=== PATIENT | male | born 1990 | race Caucasian/White ===

== ENCOUNTER 2022-03-13 10:04 | Outpatient (REF) | payer BC, SELFPAY ==
[2022-03-13 13:31] LABS: MANUAL DIFF FLAG NO
[2022-03-13 13:45] LABS: Basophils Absolute Auto 0.1 X10*3/uL (0.0-0.2); Basophils Percent Auto 0.7 % (0-2); Eosinophils Absolute Auto 0.1 X10*3/uL (0.0-0.4); Eosinophils Percent Auto 1.3 % (0-4); Hematocrit 46.2 % (42.0-52.0); Hemoglobin 16.5 g/dl (14.0-18.0); Imm Gran Abs Auto 0.26 X10*3/uL (0.00-0.03); Imm Gran Pct Auto 2.9 % (0.0-0.4); Lymphocytes Absolute Auto 2.2 X10*3/uL (1.2-4.9); Lymphocytes Percent Auto 24.8 % (20-40); Mean Corpuscular HGB Conc 35.7 g/dl (31.0-36.0); Mean Corpuscular Hemoglobin 33.2 pg (27.0-33.0); Monocytes Percent Auto 10.5 % (2-11); Neutrophils Absolute Auto 5.4 x10*3/uL (2.0-8.3); Neutrophils Percent Auto 59.8 % (45-73); Platelet Count 305 X10*3/uL (160-400); Red Blood Count 4.97 X10*6/uL (4.60-5.80); Red Cell Distribution Width 13.5 % (11.0-16.0)
[2022-03-13 14:08] LABS: Alanine Aminotransferase 13 U/L (0-40); Albumin Level 4.3 g/dL (3.5-5.0); Alkaline Phosphatase 103 U/L (39-117); Anion Gap 13 (12-20); Aspartate Amino Transferase 25 U/L (5-37); Bilirubin Total 0.4 mg/dL (0.0-1.0); Blood Urea Nitrogen 13 mg/dL (9-16); C Reactive Protein 0.83 mg/dL (< or = 0.50); Calcium 9.7 mg/dL (8.4-10.2); Carbon Dioxide 26 mmol/L (22-29); Chloride 105 mmol/L (96-108); Estimated Glomerular Filt Rate > 60; Glucose Random 89 mg/dL (60-115); Potassium 3.8 mmol/L (3.3-5.1); Rheumatoid Factor < 15.0 IU/mL (<15.0); Sodium 140 mmol/L (135-145); Total Protein 7.7 g/dL (6.5-8.0)
[2022-03-13 14:31] LABS: Erythrocyte Sedimentation Rate 7 MM/HR (0-15); Syphilis Screen Nonreactive (Nonreactive)
[2022-03-13 15:44] LABS: CT PCR NOT DETECTED (Not Detect.); NG PCR NOT DETECTED (Not Detect.)
[2022-03-16 08:24] LABS: HBsAGNum1 0.17 S/CO (0.00-0.99); HIV AB/AG Nonreactive (Nonreactive); HIV Num 1 0.07 S/CO (0.00-0.99); Hepatitis B Surface Antigen Negative (Negative); ~HepC Num1 0.08 S/CO (0.00-0.79); ~Hepatitis C Antibody Nonreactive (Nonreactive)
[2022-03-16 13:26] LABS: Anti Nuclear Antibody Screen NEGATIVE (NEGATIVE)
[2022-03-16 18:02] LABS: Cyclic Citrullinated Peptide <16 UNITS
== END 2022-03-13 10:05 | disposition home or self-care (01) ==
LOC: HO.MANLDS 10:04
PROVIDERS: PCP Physician Assistant; Visit Provider Physician Assistant
DX: Z11.3 Encounter for screening for infections with a predominantly sexual mode of transmission (principal); Z11.4 Encounter for screening for human immunodeficiency virus [HIV]; M19.90 Unspecified osteoarthritis, unspecified site
CPT/HCPCS: 80053; 85025; 85652; 86038; 86039; 86140; 86200; 86431; 86780; 86803; 87340; 87389; 87491; 87591

== ENCOUNTER 2025-10-05 15:03 | Outpatient (REF) | payer OTHER, SELFPAY ==
[2025-10-05 15:45] LABS: MANUAL DIFF FLAG NO
[2025-10-05 18:38] LABS: Hematocrit 48.4 % (42.0-52.0); Hemoglobin 17.2 g/dl (14.0-18.0); Imm Gran Abs Auto 0.02 X10*3/uL (0.00-0.03); Imm Gran Pct Auto 0.2 % (0.0-0.4); Lymphocytes Absolute Auto 3.7 X10*3/uL (1.2-4.9); Mean Corpuscular HGB Conc 35.5 g/dl (31.0-36.0); Mean Corpuscular Hemoglobin 30.4 pg (27.0-33.0); Mean Corpuscular Volume 85.5 fL (80.0-98.0); NRBC Abs Auto 0.000 X10*3/uL (0.0-0.012); NRBC Pct Auto 0.0 /100WBC (0.0-0.2); Platelet Count 342 X10*3/uL (160-400); Red Blood Count 5.66 X10*6/uL (4.60-5.80); White Blood Count 10.5 X10*3/uL (4.8-10.8)
[2025-10-05 18:44] LABS: Appearance Urine Clear; Glucose Urine UA Negative (Negative); PH 6.0 (5.0-9.0); Specific Gravity - Urine 1.020 (1.005-1.025)
[2025-10-05 19:02] LABS: Alanine Aminotransferase 20 U/L (0-40); Albumin Level 5.1 g/dL (3.5-5.0); Alkaline Phosphatase 73 U/L (39-117); Anion Gap 11 (12-20); Aspartate Amino Transferase 33 U/L (5-37); Blood Urea Nitrogen 10 mg/dL (9-16); Calcium 9.4 mg/dL (8.4-10.2); Carbon Dioxide 28 mmol/L (22-29); Chloride 103 mmol/L (96-108); Cholesterol 158 mg/dL (<200); Estimated Glomerular Filt Rate > 60; HDL Cholesterol 38 mg/dL (>40); Magnesium 2.2 mg/dL (1.6-2.6); Potassium 3.6 mmol/L (3.3-5.1); Sodium 138 mmol/L (135-145); Total Protein 8.0 g/dL (6.5-8.0); Triglycerides 46 mg/dL (<150)
[2025-10-05 19:29] LABS: Folate 6.5 ng/mL (> or = 4.0); Vitamin B12 674 pg/mL (200-900)
[2025-10-06 08:21] LABS: HBsAGNum1 0.37 S/CO (0.00-0.99); HIV Num 1 0.05 S/CO (0.00-0.99); Hepatitis B Surface Antigen Negative (Negative); ~HepC Num1 0.08 S/CO (0.00-0.79); ~Hepatitis B Surface Antibody REACTIVE (Nonreactive); ~Hepatitis C Antibody Nonreactive (Nonreactive)
[2025-10-09 18:24] LABS: VITAMIN D (1,25 OH) D3 46 pg/mL; Vit D (1,25-Dihydroxy) Total 46 pg/mL (18-72); Vitamin D (1,25 OH) D2 <8 pg/mL
== END 2025-10-05 15:04 | disposition home or self-care (01) ==
LOC: HO.HKASLDS 15:03
PROVIDERS: PCP Student in an Organized Health Care Education/Training Program; Visit Provider Student in an Organized Health Care Education/Training Program
DX: I10 Essential (primary) hypertension (principal); A60.00 Herpesviral infection of urogenital system, unspecified; B00.9 Herpesviral infection, unspecified; F12.91 Cannabis use, unspecified, in remission; F10.11 Alcohol abuse, in remission; M19.90 Unspecified osteoarthritis, unspecified site; Z13.1 Encounter for screening for diabetes mellitus; Z87.891 Personal history of nicotine dependence
CPT/HCPCS: 36415; 80053; 80061; 81003; 82607; 82652; 82746; 83036; 83735; 84425; 84443; 85025; 86706; 86803; 87340; 87389; 96127

== ENCOUNTER 2025-10-05 15:03 | Outpatient (AMB) | payer OTHER, SELFPAY ==
--- NOTE | 2025-10-05 15:10 | MHC.PC.OV ---
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 - Med reviews Intake Note: med review [place] Inspector Required: No Allergies No Known Allergies Allergy (Verified 10/05/25 15:13) Medication List - Last Reconciled 10/05/25 by Zach Grande MD No Known Home Meds Tobacco use date assessed: 10/05/25 Dental Screening Dental Screen Date: 10/05/25 Did you have a dental visit in the last 12 months?: Yes Did you have a dental problem in the last 6 months where you did not have access to dental care?: No Was dental information given to patient?: Patient has dentist HPI HPI Comments History of Present Illness Details History of Present Illness The patient is a 35-year-old individual [facility] and for management of recurrent genital herpes outbreaks. Genital herpes simplex: The patient was diagnosed with genital herpes at age 18. Previously, the patient was on suppressive therapy with valacyclovir 1 gram daily, starting around age 19 or 20, which effectively controlled the outbreaks. Since stopping the daily medication, the patient reports that the breakouts have been horrible, with approximately four outbreaks in the last six months requiring visits to urgent care. The patient is currently recovering from an active outbreak and has medication from a recent urgent care visit. The patient notes that the outbreaks have remained severe over the years, contrary to the expectation that they might lessen with age, and questions if stress is a contributing factor. Arthritis: The patient has a history of arthritis, characterized by finger swelling, but has not experienced an episode in the last year. In the past, these episodes were treated with prednisone on two occasions, which was prescribed at an urgent care center. There is a family history of rheumatoid arthritis in the patient's grandmother and unspecified arthritis in the patient's mother's knees. Hypertension: The patient has a history of high blood pressure and was previously treated with clonidine. Substance Use History: The patient reports a history of alcoholism, characterized by years of daily drinking. For the past three years, the patient has been attempting to maintain sobriety with some relapses described as weekend binges. The patient has been sober for the last three months and expresses a desire to continue this. The patient also has a history of smoking cigarettes and marijuana since age 16, with a cigarette consumption of a pack per day, but quit both four days prior to the visit. Surgical History: - No surgical history reported. 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 - Tobacco Use: The patient reports a history of smoking approximately one pack of cigarettes per day since age 16. - The patient quit smoking four days ago and is not using any cessation aids. - Substance Use: The patient quit using marijuana four days ago. - The patient reports a history of alcoholism and has been sober for three months. Family History: - Grandmother: Has rheumatoid arthritis. - Mother: Has arthritis in the knees. Past Medical History - Genital herpes simplex since age 18. - Arthritis, unspecified, with episodes of finger swelling treated with prednisone. - Hypertension, previously treated with clonidine. - Alcohol use disorder, in early remission for 3 months. - Tobacco use disorder, quit 4 days prior to visit. - Marijuana use, quit 4 days prior to visit. Health Maintenance - The patient is establishing primary care after a period of approximately three years without a primary provider. - Comprehensive baseline laboratory screening was ordered, including a comprehensive metabolic panel, thyroid studies, B12, folate, vitamin D, hemoglobin A1c, lipid panel, CBC, HIV, and hepatitis panel. - Tobacco cessation: The patient quit smoking cigarettes (previously 1 pack/day) four days ago. - Substance use: The patient quit marijuana use four days ago and has been abstinent from alcohol for three months, with support services offered. [facility] Medical History (Updated 10/05/25 @ 15:35 by Zach Grande MD) History of hypertension Arthritis History of alcohol abuse History of marijuana use History of nicotine dependence Herpes simplex type 2 infection Family History (Updated 10/05/25 @ 15:16 by Carl Yu CMA) Maternal Uncle Substance abuse Paternal Uncle Substance abuse Father Substance abuse Mother Substance abuse Arthritis Maternal Grandmother Hypertension Social History (Updated 10/05/25 @ 15:16 by Carl Yu CMA) Housing: House Alcohol intake: former Patient Tobacco Use Status: Former Tobacco user e-Cigarette/Vaping Use: Never Used Substance Use Type: Marijuana service: No Current occupational status: employed 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 1. Little interest or pleasure in doing things: several days 2. Feeling down, depressed, or hopeless: not at all 3. Trouble falling or staying asleep, or sleeping too much: several days 4. Feeling tired or having little energy: several days 5. Poor appetite or overeating: nearly every day 6. Feeling bad about yourself - or that you are a failure or have let yourself or your family down: several days 7. Trouble concentrating on things, such as reading the newspaper or watching television: several days 8. Moving or speaking so slowly that other people could have noticed. Or the opposite - being so fidgety or restless that you have been moving around a lot more than usual: not at all 9. Thoughts that you would be better off or of hurting yourself in some way: not at all Total score: 8 Depression Screening Interpretation: Negative Depression Screening Done: Yes 43955 - PHQ-9 Billing: Yes Source: Developed by Drs. Steffen Felton, Lanette Longoria, Celestine Larkin and colleagues, with an educational boubacar from [employer]. Thrive Questionnaire Date Thrive assessed: 10/05/25 I am a: Patient What is your living situation today?: I have a steady place to live Within the past 12 months, did the food you bought not last and you didn't have the money to get more?: Never true Within the past 12 months, did you worry whether your food would run out before you got money to buy more?: Never true Do you have trouble paying for medicines?: No Do you have trouble getting transportation to medical appointments?: No Do you have trouble paying your heating and electricity bill?: No Do you have trouble taking care of your child, family member or friend?: No Do you have trouble with day-to-day activities such as bathing, preparing meals, shopping, managing finances, etc.?: No Are you currently unemployed and looking for a job?: No Are you interested in more education?: No Please select the resources that you would like help with: None Currently or been in a relationship where the following occur: No concerns reported THRIVE Score: 0 AUDIT C Alcohol Use Questionnaire (AUDIT-C) 1. How often do you have a drink containing alcohol?: Never 3. How often do you have six or more drinks on one occasion?: Never Total Score: 0 KELLY-7 AMB Questionnaire KELLY-7 Date KELLY - 7 assessed: 10/05/25 Feeling nervous, anxious, or on edge: 1 = Several days Not being able to stop or control worryin = Several days Worrying too much about different things: 1 = Several days Trouble relaxin = More than half the days Being so restless that it is hard to sit still: 2 = More than half the days Becoming easily annoyed or irritable: 1 = Several days Feeling afraid as if something awful might happen: 0 = Not at all Total KELLY-7 score (0-4 normal; 5-9 mild; 10-14 moderate; 15-21 severe): 8 Source: Developed by Drs. Steffen Felton, Lanette Longoria, Celestine Larkin and colleagues, with an educational boubacar from [employer]. KELLY-7 Assessment Billing KELLY-7 Assessment Tool: KELLY-7 Assessment 25171 Review of Systems Narrative Review of Systems - Constitutional: Reports desire to gain weight. - Musculoskeletal: Reports history of episodes of finger swelling. - Genitourinary: Reports recurrent, severe genital herpes outbreaks. - Reports having a weak bladder with decreased ability to hold urine, but denies urinary frequency. - Neurologic: Reports intermittent sleep. - Allergies: Denies any known allergies. 10-point ROS reviewed and negative except as noted in HPI Physical exam (Primary Care) Vital Signs: Last Vital Signs Temp 97.9 F 10/05/25 15:16 Pulse 65 10/05/25 15:16 Resp 18 10/05/25 15:16 BP 137/77 10/05/25 15:16 Pulse Ox 98 10/05/25 15:16 Oxygen Delivery Method Room Air 10/05/25 15:16 BMI result Body Mass Index 18.2 Tobacco/Smoking Status: Tobacco use Status Tobacco use date assessed 10/05/25 10/05/25 15:18 Patient Tobacco Use Status Former Tobacco user 10/05/25 15:18 e-Cigarette/Vaping Use Never Used 10/05/25 15:18 PHQ-9: PHQ-9 Score PHQ-9: Total score 8 10/05/25 15:12 Depression Screening Interpretation: Negative Thrive Assessment: Date of Thrive Assessment Date Thrive assessed 10/05/25 10/05/25 15:11 Currently or been in a relationship where the following occur: No concerns reported Narrative Physical Exam General: Well-appearing, in no acute distress. Vital signs: Within normal limits. HEENT: Normocephalic, atraumatic. PERRLA, EOMI. Conjunctiva clear, sclera anicteric. Oropharynx clear, mucous membranes moist. TMs intact bilaterally. Neck: Supple, no lymphadenopathy, no thyromegaly, no JVD or carotid bruits. Cardiovascular: RRR, normal S1/S2, no murmurs, rubs, or gallops. Peripheral pulses 2+ and symmetric. No edema. Respiratory: Lungs clear to auscultation bilaterally, no wheezes, rales, or rhonchi. Normal effort. Abdomen: Soft, non-tender, non-distended. Normoactive bowel sounds. No hepatosplenomegaly, no masses. MSK: Full range of motion, no joint swelling or deformity. Normal gait. Skin: Warm, dry, intact. No rashes, lesions, or pallor. Neuro: Alert and oriented x3. Cranial nerves II-XII intact. Strength 5/5 throughout. Sensation intact. Reflexes 2+ symmetric. Normal coordination and gait. Psych: Appropriate mood and affect. Normal judgment and insight. Coding Level of Care Code New Pt Level 4 (74896) Diagnoses Encounter for screening, unspecified Z13.9 Herpes simplex type 2 infection B00.9 History of nicotine dependence Z87.891 History of marijuana use F12.91 History of alcohol abuse F10.11 Arthritis M19.90 History of hypertension Z86.79 Additional Codes KELLY-7 Assessment Billing - KELLY-7 Assessment Tool: KELLY-7 Assessment 04987 ([id number]) PHQ-9 - 89590 - PHQ-9 Billing: Yes ([id number]) Assessment & Plan Assessment & Plan (1) Encounter for screening, unspecified: Code(s): Z13.9 - Encounter for screening, unspecified (2) Herpes simplex type 2 infection: Code(s): B00.9 - Herpesviral infection, unspecified Category: Medical (3) History of nicotine dependence: Code(s): Z87.891 - Personal history of nicotine dependence Category: Medical (4) History of marijuana use: Code(s): F12.91 - Cannabis use, unspecified, in remission Category: Medical (5) History of alcohol abuse: Code(s): F10.11 - Alcohol abuse, in remission Category: Medical (6) Arthritis: Code(s): M19.90 - Unspecified osteoarthritis, unspecified site Category: Medical (7) History of hypertension: Code(s): Z86.79 - Personal history of other diseases of the circulatory system Category: Medical Plan Consent The risks, benefits, and alternatives of restarting valacyclovir were discussed with the patient. Specifically, the risk of kidney stones and potential kidney damage with valacyclovir use was reviewed, and the patient was informed about the need to monitor renal function via lab testing. The patient understood and consented to the treatment and the associated monitoring. Patient was informed and verbally consented to the use of an ambient scribe for clinic note documentation during this visit. Plan 1. Genital Herpes Simplex - Restart suppressive therapy with valacyclovir 1 gram by mouth daily. - A 30-day supply will be prescribed. - The patient was counseled on the potential for valacyclovir to cause kidney stones and affect kidney function. - Ordered comprehensive metabolic panel to check baseline renal function (creatinine) and will monitor. 2. Health Maintenance And Substance Use - Ordered comprehensive baseline labs to establish care, including: comprehensive metabolic panel, thyroid stimulating hormone, vitamin B12, folate, vitamin D, hemoglobin A1c, lipid panel, complete blood count, HIV, hepatitis B, and hepatitis C. - A urinalysis was also ordered. - Given the patient's history of alcohol use, specific attention will be paid to the liver function tests and vitamin B12 levels. - Offered support services for alcohol sobriety and encouraged the patient to reach out if help is needed. - Acknowledged and supported the patient's recent cessation of tobacco and marijuana. - Follow up in two weeks to review lab results and discuss further management. 3. Arthritis And Hypertension - The patient's history of arthritis and hypertension will be monitored. - The ordered comprehensive lab panel will provide baseline data, including inflammatory markers from the CBC and renal function, which is relevant to both conditions. - No acute intervention is required at this time as the arthritis is not currently active and blood pressure was not noted to be elevated. Discussion Notes I met with the patient, who is a new patient to the practice, to establish care and address concerns about frequent genital herpes outbreaks. We discussed the patient's history of effective outbreak control with daily valacyclovir and the recent increase in frequency since its discontinuation. I recommended resuming suppressive therapy with valacyclovir 1 gram daily and explained the importance of monitoring renal function due to potential side effects like kidney stones. To get a comprehensive understanding of the patient's health, I ordered baseline bloodwork, including a CMP, CBC, lipid panel, A1c, thyroid, vitamin levels, and infectious disease screening for HIV and hepatitis. We reviewed the patient's history of arthritis, hypertension, and significant substance use history, including recent cessation of tobacco and marijuana, and a 3-month period of sobriety from alcohol. I offered support for ongoing sobriety. The patient agreed with the plan and will follow up in two weeks to review results. Patient Instructions - You will be starting on Valacyclovir 1 gram, to be taken once daily. A 30-day supply has been sent to your pharmacy. - Be aware that this medication can sometimes affect your kidneys. We will monitor this with blood tests. - Please go to the lab to have your blood drawn today. The lab closes in 30 minutes. - Continue your efforts with quitting smoking and staying sober. If you feel you need any help or support, please let me know. - Schedule a follow-up appointment in two weeks to go over your lab results and discuss next steps. Medical Decision Making The patient is a 35-year-old individual presenting to establish primary care with a chief complaint of poorly controlled genital herpes outbreaks since ceasing suppressive therapy. The history of four outbreaks in six months and previous success with valacyclovir 1 gram daily justifies resuming suppressive therapy to improve quality of life and reduce transmission risk. Given the potential for nephrotoxicity with long-term valacyclovir, a baseline comprehensive metabolic panel to assess renal function is a necessary precaution. Comprehensive lab screening is indicated as the patient has not had a primary provider for three years and has a significant history of alcohol and tobacco use. This will help evaluate for potential sequelae such as liver disease, nutritional deficiencies (B12, folate), and screen for common comorbidities like diabetes and hyperlipidemia. The history of arthritis with a family history of rheumatoid arthritis is noted, but as it is not currently active, further workup is deferred pending results of baseline labs. The plan is to review all results at a two-week follow-up to formulate a long-term health maintenance strategy. Total Time Statement 30 min Total time spent caring for the patient today includes pre-visit chart review, documentation, review of laboratory and diagnostic imaging results, medication reconciliation, medically necessary evaluation, counseling on diagnoses, care coordination, ordering appropriate tests and medications, review of tests performed by other providers, reporting test results to the patient, and communication with other healthcare providers. Orders: Orders Complete Blood Count Auto Diff Today Z13.9 - Encounter for screening, unspecified Hepatitis B Surface Antigen Today Z13.9 - Encounter for screening, unspecified Comprehensive Met. Panel Today Z13.9 - Encounter for screening, unspecified TSH reflex Free T4 Today Z13.9 - Encounter for screening, unspecified HIV Ab/Ag Today Z13.9 - Encounter for screening, unspecified Vitamin B12 and Folate Today Z13.9 - Encounter for screening, unspecified Hemoglobin A1c Today Z13.9 - Encounter for screening, unspecified Vitamin D 1,25 dihydroxy Today Z13.9 - Encounter for screening, unspecified Hepatitis C Antibody Today Z13.9 - Encounter for screening, unspecified UA CC w/rflx Micro + Cult Today Z13.9 - Encounter for screening, unspecified Lipid Panel Today Z13.9 - Encounter for screening, unspecified Magnesium Today Z13.9 - Encounter for screening, unspecified Hepatitis B Surface Antibody Today Z13.9 - Encounter for screening, unspecified Vitamin B1 Today Z13.9 - Encounter for screening, unspecified Medications: New valacyclovir 1,000 mg PO DAILY 30 tabs 0RF
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
--- OUTSIDE RECORDS SUMMARY | 2025-10-05 15:11 | XMS_ITS | Encounter Summary ---
Author Organization [facility] Address [address] [place] [address] Phone Care Team Providers Care Lead Inspector Name Role Phone Unknown, Unknown Primary Care Provider Guy velasquez Encounter Details Date Type Department Care Team (Latest Contact Info) Description 09/07/2019 Transcribe Orders Virtual Department [address] [place] [address] Kim Owen PA [address] [place] [address] Abdominal pain, epigastric (Primary Dx) Social History Tobacco Use Types Packs/Day Years Used Date Smoking Tobacco: Every Day Smokeless Tobacco: Never Alcohol Use Standard Drinks/Week Comments Not Currently 0 (1 standard drink = 0.6 oz pur e alcohol) Comments Unknown Sex and Gender Information Value Date Recorded Sex Assigned at Unknown 08/21/2024 9:30 PM EDT Legal Sex Male 9:05 PM EDT Gender Identity Male 08/21/2024 9:30 PM EDT Sexual Orientation Don't know 08/21/2024 9: 30 PM EDT documented as of this encounter Plan of Treatment Not on file documented as of this encounter Visit Diagnoses Diagnosis Abdominal pain, epigastric- Primary documented in this encounter Care Teams Lead Inspector Relationship Specialty Start Date End Date Unknown, Unknown, PCP - General 07/09/19 documented as of this encounter Additional Source Comments The information contained in this document represents components of the legal health record. It is not the complete legal health record.[facility]
--- OUTSIDE RECORDS SUMMARY | 2025-10-05 15:11 | XMS_ITS | Encounter Summary ---
Author Organization [facility] Address [address] [facility] [address] [place] [address] Phone Care Team Providers Care Director Operating Room Name Role Phone Unknown, Unknown Primary Care Provider Guy velasquez Reason for Referral * MRI/CAT Scan - Closed Specialty Diagnoses / Procedures Referred By Amber willams Referred To Contact Radiology Diagnoses Multiple nodules of lung Other nonspecific abnormal finding of lung field Procedures CT Chest Maite Rodriguez PA-C Phone: tel: fax: [email or web address] Referral ID Status Reason Start Date Expiration Date Visits Re quested Visits Authorized [id number] Closed 07/10/2019 09/08/2019 1 1 Encounter Details Date Type Department Care Team (Latest Contact Info) Description 07/10/2019 Transcribe Orders Virtual Department [address] [place] [address] Maite Rodriguez PA-C [address] [place] [address] [email or web address] Multiple nodules of lung (Primary Dx); Other nonspecific abnormal finding of lung field Social History Tobacco Use Types Packs/Day Years [...] on file documented as of this encounter Results * CT CHEST WITH CONTRAST (07/31/2019 4:12 PM EDT) Anatomical Region Laterality Modality Chest Computed Tomogra phy 07/31/2019 4:20 PM EDT Impressions 07/31/2019 4:[address] appearance of the chest. No evidence of micro-nodularity nor any other pulmonary, cardiac or musculoskeletal pathology. The findings on the recent abdominal CT appear to have been artifactual. TOTAL CTDIvol: 3.5 mGy POS - [id number] Narrative 07/31/2019 4:27 PM EDT Automated Exposure Control. High-resolution thin section technique with Multiplanar reconstructions. Contrast enhanced exam. Compare to CT abdomen 07/09/2019; the resolution in the lung carmona is markedly improved on today's exam due to better inspiratory effort and lack of motion artifact. FINDINGS: The micro-nodularity described on the recent abdominal CT proves to be an artifact; today's exam shows no nodules of any size in either lung field. No interstitial lung disease. No focal infiltrate. No bronchiectasis, bronchial wall thickening or endobronchial filling defects. No pleural or pericardial effusion. Normal thymus. No mediastinal adenopathy or mass. Heart and great vessels are unremarkable. No thyroid, esophageal or adrenal pathology. No bony abnormalities. Procedure Note Chilango Bowen MD - 07/31/2019 Automated Exposure Control. High-resolution thin section technique withMultiplanar reconstructions. Contrast enhanced exam. Compare to CT abdomen 07/09/2019; the resolution in the lung carmona ismarkedly improved on today's exam due to better inspiratory effort andlack of motion artifact. FINDINGS: The micro-nodularity described on the recent abdominal CT proves to be anartifact; today's exam shows no nodules of any size in either lungfield. No interstitial lung disease. No focal infiltrate. No bronchiectasis, bronchial wall thickening or endobronchial fillingdefects. No pleural or pericardial effusion. Normal thymus. No mediastinal adenopathy or mass. Heart and great vessels are unremarkable. No thyroid, esophageal or adrenal pathology. No bony abnormalities. IMPRESSION: Normal CT appearance of the chest. No evidence of micro-nodularity nor anyother pulmonary, cardiac or musculoskeletal pathology. The findings on therecent abdominal CT appear to have been artifactual. TOTAL CTDIvol: 3.5 mGy POS - [id number] February Jennifer HILL IMG CT CHEST Final Result documented in this encounter Visit Diagnoses Diagnosis Multiple nodules of lung- Primary Other nonspecific abnormal finding of lung field Multiple nodules of lung Other nonspecific abnormal finding of lung field documented in this encounter Care Teams Director Operating Room Relationship Specialty Start Date End Date Unknown, Unknown, PCP - General 07/09/19 documented as of this encounter Additional Source Comments The information contained in this document represents components of the legal health record. It is not the complete legal health record.[facility]
--- OUTSIDE RECORDS SUMMARY | 2025-10-05 15:11 | XMS_ITS | Clinical Summary ---
Author Organization [facility] Address [address] [facility] [address] [place] [phone] Phone Care Team Providers Care Transfer Station Operator Name Role Phone Unknown, Unknown Primary Care Provider Shawandavamarisol lable Allergies No known active allergies Medications venlafaxine HCl (VENLAFAXINE ORAL) Take by mouth daily. Active ciprofloxacin HCl (CIPRO) 500 MG tablet Take 1 tablet (500 mg total) by mouth 2 (two) times a day. 14 tablet 9 Active Additional Information Patient not taking.Reported on 08/21/2024 cloNIDine HCL (CATAPRES) 0.1 MG tablet Take 0.1 mg by mouth daily as needed. Active Active Problems No known active problems Social History Tobacco Use Types Packs/Day Years Used Date Smoking Tobacco: Every Day Smokeless Tobacco: Never Alcohol Use Standard Drinks/Week Comments Not Currently 0 (1 standard drink = 0.6 oz pur e alcohol) Education Answer Date Recorded Are you interested in more education? Not on geraldine e 08/22/2024 Are you concerned about learning? Not on file 08/22/2024 No 08/22/2024 No 08/22/2024 Digital Access Answer Date Recorded No 08/22/2024 No 08/22/2024 Reliable internet access at home? Not on file 08/22/2024 Device with a working camera? Not on file Comments Unknown Sex and Gender Information Value Date Recorded Sex Assigned at Unknown 08/21/2024 9:30 PM EDT Legal Sex Male 9:05 PM EDT Gender Identity Male 08/21/2024 9:30 PM EDT Sexual Orientation Don't know 08/21/2024 9: 30 PM EDT Last Filed Vital Signs Vital Sign Reading Time Taken Comments Blood Pressure 139/89 08/21/2024 9:51 PM EDT Pulse 68 08/21/2024 9:51 PM EDT Temperature 36.9 C (98.4 F) 08/21/2024 9:51 PM EDT Respiratory Rate 16 08/21/2024 9:51 PM EDT Oxygen Saturation 99% 08/21/2024 9:51 PM EDT Inhaled Oxygen Concentration - - Weight 56.7 kg (125 lb) 08/21/2024 7:24 PM EDT Height 170.2 cm (5' 7 ) 08/21/2024 7:24 PM EDT Body Mass Index 19.58 08/21/2024 7:24 PM EDT Plan of Treatment Health Maintenance Due Date Last Done Comments LIPID PANEL 1989 DEPRESSION SCREENING 2001 SMOKING Hx and SMOKELESS TOBACCO SCREENING 2002 HEPATITIS C SCREENING 2007 HIV ONE-TIME SCREENING (18-6 5 YEARS) 2007 PNEUMOCOCCAL VACCINES (0-49 years) (1 of 2 - PCV) 2008 INFLUENZA VACCINE (#1) 2025 3, 12/16/2009, 12/16/2009 COVID-19 VACCINE (1 - 2024-2 6 season) 2025 Adult Td,Tdap Booster 10/31/2028 10/31/2018 , 12/16/2009, 07/14/2002 HIB VACCINES Completed 12/30/1990 HEPATITIS A VACCINES Aged Out No long er eligible based on patient's age to complete this topic MENINGOCOCCAL VACCINES (ACWY) Aged Out No longer eligible based on patient's age to complete this topic MENINGOCOCCAL VACCINES (B) Aged Out N o longer eligible based on patient's age to complete this topic Medical Devices Not on file Insurance [facility] A[facility] ACO [facility]CO [facility]CO [facility] ACO [facility] [employer] ACO [facility] Care Teams Transfer Station Operator Relationship Specialty Start Date End Date Unknown, Unknown, PCP - General 07/09/19 Additional Source Comments The information contained in this document represents components of the legal health record. It is not the complete legal health record.[facility]
--- OUTSIDE RECORDS SUMMARY | 2025-10-05 15:11 | XMS_ITS | Encounter Summary ---
Author Organization [facility] Address [address] [facility] [address] [place] [address] Phone Care Team Providers Care Precipitator Supervisor Name Role Phone Unknown, Unknown Primary Care Provider Guy velasquez Encounter Details Date Type Department Care Team (Latest Contact Info) Description 07/11/2019 Transcribe Orders Virtual Department [address] [place] [address] Maite Rodriguez, [address] [place] [address] [email or web address] Pleurodynia (Primary Dx) Social History Tobacco Use Types [...] documented as of this encounter Results * XR CHEST PA AND LATERAL 2 VIEWS (07/13/2019 4:08 PM EDT) Anatomical Region Laterality Modality Chest Radiographic Kasia ging 07/13/2019 4:17 PM EDT Impressions 07/13/2019 5:02 PM EDT No acute cardiopulmonary abnormality is detected. POS - [id number] Edited by: Uma Saini on 07/13/2019 4:27 PM Narrative 07/13/2019 5:02 PM EDT PA and lateral views of the chest obtained. Comparison made to prior of July 09, 2019. The nodular area seen on the radiograph from 4 days ago is not clearly reproduced today. Lungs appear clear. Heart and mediastinal contours appear within normal limits. No free air or pneumothorax identified. Procedure Note Hilary Aj MD - 07/13/2019 PA and lateral views of the chest obtained. Comparison made to prior 2018. The nodular area seen on the radiograph from 4 days agois not clearly reproduced today. Lungs appear clear. Heart and mediastinalcontours appear within normal limits. No free air or pneumothoraxidentified. IMPRESSION: No acute cardiopulmonary abnormality is detected. POS - [id number] Edited by: Uma Saini on 07/13/2019 4:27 PM February Jennifer HILL IMG XR CHEST Final Result documented in this encounter Visit Diagnoses Diagnosis Pleurodynia- Primary Painful respiration Pleurodynia Painful respiration documented in this encounter Care Teams Precipitator Supervisor Relationship Specialty Start Date End Date Unknown, Unknown, PCP - General 07/09/19 documented as of this encounter Additional Source Comments The information contained in this document represents components of the legal health record. It is not the complete legal health record.[facility]
[2025-10-05 15:16] VITALS: BP 137/77; PULSE 65; RESP 18; TEMP 36.6; O2SAT 98; BMI 18.2
== END 2025-10-05 15:35 | disposition home or self-care (01) ==
LOC: HO.HMCFMS 15:04
PROVIDERS: Visit Provider Student in an Organized Health Care Education/Training Program
DX: Z13.9 Encounter for screening, unspecified (principal); B00.9 Herpesviral infection, unspecified; Z87.891 Personal history of nicotine dependence; F12.91 Cannabis use, unspecified, in remission; F10.11 Alcohol abuse, in remission; M19.90 Unspecified osteoarthritis, unspecified site; Z86.79 Personal history of other diseases of the circulatory system

== ENCOUNTER 2025-10-24 15:38 | Outpatient (AMB) | payer OTHER, SELFPAY ==
--- NOTE | 2025-10-24 15:43 | A.OFFPC_ITS ---
Vital Signs 10/24/25 15:47 Height 5 ft 8.75 in Weight 124 lb BMI 18.4 BP 111/67 Blood Pressure Location Rt brachial Position Sitting Respiration 16 Pulse 72 Pulse Source Pulse Oximeter Temp 98 F Temp Source Oral Pulse Oximetry (%) 97 Oxygen Delivery Method Room Air Intake Visit Reasons: 2 wk -lab review Intake Note: Patient present for lab review. Print Production Manager Required: No Accompanied by: Self / Same As Patient Allergies No Known Allergies Allergy (Verified 10/24/25 15:46) Medication List - Last Reconciled 10/26/25 by Zach Grande MD pantoprazole 20 mg PO DAILY thiamine HCl (vitamin B1) 100 mg PO DAILY valacyclovir 1,000 mg PO DAILY Tobacco use date assessed: 10/05/25 Dental Screening Dental Screen Date: 10/05/25 HPI HPI Comments History of Present Illness Details History of Present Illness The patient is a 35-year-old male presenting for a follow-up visit to discuss recent laboratory results and an episode of intense epigastric pain. Epigastric pain: The patient reports a first-time episode of intense, persistent epigastric pain that occurred recently. The pain started at approximately 7:00 AM after drinking coffee and lasted until about 5:00 PM. The patient denies food or fatty meals as triggers. He underwent an ultrasound at [facility], which showed no evidence of acute cholecystitis. Thiamine deficiency: Recent lab work revealed a low vitamin B1 (thiamine) level of less than 6, with the normal range being 8 to 30. Hyperbilirubinemia: Recent lab results showed a slightly elevated total bilirubin of 1.8. Other liver function tests and blood counts were within normal limits. Social History: - Diet: Reports consuming spicy foods. Diagnostic Results: - Labs: - CBC: Normal white blood cells, red blo od cells, hemoglobin, and platelets. - CMP: Sodium, potassium, chloride, crea tinine, glucose, calcium, and magnesium are normal. - Total bilirubin: Elevated at 1.8. - Lipid panel: Non-fasting bad cholester ol (LDL) was 111, considered essentially normal. - Vitamin B1 (Thiamine): Low at <6 (norm al range 8-30). - Vitamin B12, Vitamin D, folate, and th yroid function: Normal. - Infectious disease screening: Negative for Hepatitis B, Hepatitis C, and HIV. - Imaging: - Abdominal Ultrasound: No findings to s uggest acute cholecystitis. Past Medical History Health Maintenance - Screening for Hepatitis B, Hepatitis C , and HIV were negative. [facility] Medical History (Updated 10/26/25 @ 08:38 by Zach Grande MD) Thiamin deficiency Hyperbilirubinemia Epigastric pain History of hypertension Arthritis History of alcohol abuse History of marijuana use History of nicotine dependence Herpes simplex type 2 infection Family History (Updated 10/05/25 @ 15:16 by Carl Yu CMA) Maternal Uncle Substance abuse Paternal Uncle Substance abuse Father Substance abuse Mother Substance abuse Arthritis Maternal Grandmother Hypertension Social History Housing: House Alcohol intake: former Patient Tobacco Use Status: Former Tobacco user e-Cigarette/Vaping Use: Never Used Substance Use Type: Marijuana service: No Current occupational status: employed 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 1. Little interest or pleasure in doing things: several days 2. Feeling down, depressed, or hopeless: not at all 3. Trouble falling or staying asleep, or sleeping too much: several days 4. Feeling tired or having little energy: several days 5. Poor appetite or overeating: nearly every day 6. Feeling bad about yourself - or that you are a failure or have let yourself or your family down: several days 7. Trouble concentrating on things, such as reading the newspaper or watching television: several days 8. Moving or speaking so slowly that other people could have noticed. Or the opposite - being so fidgety or restless that you have been moving around a lot more than usual: not at all 9. Thoughts that you would be better off or of hurting yourself in some way: not at all Total score: 8 Depression Screening Interpretation: Negative Depression Screening Done: Yes 25016 - PHQ-9 Billing: Yes Source: Developed by Drs. Steffen Felton, Lanette Longoria, Celestine Larkin and colleagues, with an educational boubacar from [employer]. Thrive Questionnaire Date Thrive assessed: 10/05/25 I am a: Patient What is your living situation today?: I have a steady place to live Within the past 12 months, did the food you bought not last and you didn't have the money to get more?: Never true Within the past 12 months, did you worry whether your food would run out before you got money to buy more?: Never true Do you have trouble paying for medicines?: No Do you have trouble getting transportation to medical appointments?: No Do you have trouble paying your heating and electricity bill?: No Do you have trouble taking care of your child, family member or friend?: No Do you have trouble with day-to-day activities such as bathing, preparing meals, shopping, managing finances, etc.?: No Are you currently unemployed and looking for a job?: No Are you interested in more education?: No Please select the resources that you would like help with: None Currently or been in a relationship where the following occur: No concerns reported THRIVE Score: 0 AUDIT C Alcohol Use Questionnaire (AUDIT-C) 1. How often do you have a drink containing alcohol?: Never 3. How often do you have six or more drinks on one occasion?: Never Total Score: 0 KELLY-7 AMB Questionnaire KELLY-7 Date KELLY - 7 assessed: 10/05/25 Feeling nervous, anxious, or on edge: 1 = Several days Not being able to stop or control worryin = Several days Worrying too much about different things: 1 = Several days Trouble relaxin = More than half the days Being so restless that it is hard to sit still: 2 = More than half the days Becoming easily annoyed or irritable: 1 = Several days Feeling afraid as if something awful might happen: 0 = Not at all Total KELLY-7 score (0-4 normal; 5-9 mild; 10-14 moderate; 15-21 severe): 8 Source: Developed by Drs. Steffen Felton, Lanette Longoria, Celestine Larkin and colleagues, with an educational boubacar from [employer]. KELLY-7 Assessment Billing KELLY-7 Assessment Tool: KELLY-7 Assessment 77247 Review of Systems Narrative Review of Systems - Gastrointestinal: Reports one episode of intense, persistent epigastric pain. Denies bloody stools. - Allergies: Denies any known allergies. 10-point ROS reviewed and negative except as noted in HPI Physical exam (Primary Care) Vital Signs: Last Vital Signs Temp 98 F 10/24/25 15:47 Pulse 72 10/24/25 15:47 Resp 16 10/24/25 15:47 BP 111/67 10/24/25 15:47 Pulse Ox 97 10/24/25 15:47 Oxygen Delivery Method Room Air 10/24/25 15:47 BMI result Body Mass Index 18.4 Tobacco/Smoking Status: Tobacco use Status Tobacco use date assessed 10/05/25 10/24/25 15:45 Patient Tobacco Use Status Former Tobacco user 10/24/25 15:45 e-Cigarette/Vaping Use Never Used 10/24/25 15:45 PHQ-9: PHQ-9 Score PHQ-9: Total score 8 10/24/25 15:45 Depression Screening Interpretation: Negative Thrive Assessment: Date of Thrive Assessment Date Thrive assessed 10/05/25 10/24/25 15:45 Currently or been in a relationship where the following occur: No concerns reported Narrative Physical Exam General: Well-appearing, in no acute distress. Vital signs: Within normal limits. HEENT: Normocephalic, atraumatic. PERRLA, EOMI. Conjunctiva clear, sclera anicteric. Oropharynx clear, mucous membranes moist. TMs intact bilaterally. Neck: Supple, no lymphadenopathy, no thyromegaly, no JVD or carotid bruits. Cardiovascular: RRR, normal S1/S2, no murmurs, rubs, or gallops. Peripheral pulses 2+ and symmetric. No edema. Respiratory: Lungs clear to auscultation bilaterally, no wheezes, rales, or rhonchi. Normal effort. Abdomen: Soft, non-tender, non-distended. Normoactive bowel sounds. No hepatosplenomegaly, no masses. Reports very intense epigastric pain, persistent from 7:00 AM to 5:00 PM, possibly related to coffee consumption. MSK: Full range of motion, no joint swelling or deformity. Normal gait. Skin: Warm, dry, intact. No rashes, lesions, or pallor. Neuro: Alert and oriented x3. Cranial nerves II-XII intact. Strength 5/5 throughout. Sensation intact. Reflexes 2+ symmetric. Normal coordination and gait. Psych: Appropriate mood and affect. Normal judgment and insight. Coding Level of Care Code Est Pt Level 3 (93986) Add On Problem Visit Only Diagnoses Epigastric pain R10.13 Hyperbilirubinemia E80.6 Thiamin deficiency E51.9 Additional Codes KELLY-7 Assessment Billing - KELLY-7 Assessment Tool: KELLY-7 Assessment 43701 ([id number]) PHQ-9 - 68545 - PHQ-9 Billing: Yes ([id number]) Assessment & Plan Assessment & Plan (1) Epigastric pain: Code(s): R10.13 - Epigastric pain Category: Medical (2) Hyperbilirubinemia: Code(s): E80.6 - Other disorders of bilirubin metabolism Category: Medical (3) Thiamin deficiency: Code(s): E51.9 - Thiamine deficiency, unspecified Category: Medical Plan Consent The patient verbally agreed to a 30-day trial of pantoprazole and dietary modifications. Patient was informed and verbally consented to the use of an ambient scribe for clinic note documentation during this visit. Plan 1. Epigastric Pain - The patient's pain was persistent rather than intermittent, which makes cholecystitis less likely. - A recent ultrasound was negative for acute cholecystitis. - The leading differential is gastritis, possibly triggered by coffee. - A CT scan is not indicated at this time. - Prescribed pantoprazole 20 mg delayed-release daily for 30 days to reduce stomach acid. - Advised to take pantoprazole in the morning before eating or drinking coffee. - Recommended dietary modifications, including avoiding citrus, seafood, peppers, and spicy foods. 2. Thiamine Deficiency - Prescribed daily thiamine supplements due to a lab finding of a level <6 (normal 8-30). - Plan to repeat the lab test at a later date to ensure levels normalize. 3. Hyperbilirubinemia - Noted a slightly elevated total bilirubin of 1.8. - As other liver function tests and bloodwork are normal, this finding is not of immediate concern and will be monitored. Discussion Notes I reviewed the patient's recent lab results with him, highlighting that most values, including his complete blood count, electrolytes, kidney function, and glucose, were normal. I noted two abnormalities: a slightly elevated total bilirubin at 1.8 and a low vitamin B1 (thiamine) level, for which I am prescribing a supplement. We discussed his recent episode of severe epigastric pain, and I explained that given its persistent nature and the negative ultrasound, it was unlikely to be gallbladder-related. I explained that the likely cause is gastritis and recommended a 30-day course of pantoprazole to reduce stomach acid, along with dietary changes to avoid triggers like spicy foods. The patient inquired about a CT scan, and I reassured him that it is not necessary at this time. The patient agreed with the proposed plan. Patient Instructions - Take one thiamine supplement pill every day. - Take one pantoprazole 20 mg pill each morning before you eat or drink anything, including coffee, for the next 30 days. - Try to avoid or cut down on eating spicy foods, citrus fruits, peppers, and peppermint as they can upset your stomach. - Follow up as planned to repeat your lab work. Medical Decision Making The patient is a 35-year-old male who presented to discuss lab results and a recent episode of severe epigastric pain. His pain presentation was atypical for cholecystitis, as it was persistent rather than colicky, and an ultrasound was negative for acute gallbladder disease. Given the history of pain onset after coffee, gastritis is the most likely diagnosis. A trial of a proton pump inhibitor, pantoprazole 20 mg daily for 30 days, is a reasonable next step to manage presumed gastritis and assess for symptom improvement. A CT scan of the abdomen is not warranted at this juncture given the clinical picture and negative ultrasound. Lab work showed a notable thiamine deficiency, which will be treated with oral supplementation and rechecked later. The isolated, mild elevation in total bilirubin is of low clinical significance in the setting of o therwise normal liver markers and will be monitored. Total Time Statement 20 min Total time spent caring for the patient today includes pre-visit chart review, documentation, review of laboratory and diagnostic imaging results, medication reconciliation, medically necessary evaluation, counseling on diagnoses, care coordination, ordering appropriate tests and medications, review of tests performed by other providers, reporting test results to the patient, and communication with other healthcare providers. Medications: New pantoprazole 20 mg PO DAILY 30 tabs 0RF thiamine HCl (vitamin B1) 100 mg PO DAILY 90 tabs 0RF
[2025-10-24 15:47] VITALS: BP 111/67; PULSE 72; RESP 16; TEMP 36.6; O2SAT 97; BMI 18.4
--- OUTSIDE RECORDS SUMMARY | 2025-10-25 00:19 | XMS_ITS | Encounter Summary ---
Author Organization [facility] Address [address] [facility] [address] [place] [address] Phone Care Team Providers Care Lens Cleaner Name Role Phone Unknown, Unknown Primary Care Provider Guy velasquez Encounter Details Date Type Department Care Team (Latest Contact Info) Description 07/11/2019 Transcribe Orders Virtual Department [address] [place] [address] Maite Rodriguez, LIZ Lozano. Jatin[address] [place] [address] [email or web address] Pleurodynia (Primary Dx) Social History [...] acute cardiopulmonary abnormality is detected. POS - [id number] Edited by: Uma Saini on 07/13/2019 4:27 [...] acute cardiopulmonary abnormality is detected. POS - [id number] Edited by: Uma Saini on 07/13/2019 4:27 PM February Jennifer HILL IMG XR CHEST Final Result documented in this encounter Visit Diagnoses Diagnosis Pleurodynia- Primary Painful respiration Pleurodynia Painful respiration documented in this encounter Care Teams Lens Cleaner Relationship Specialty Start Date End Date Unknown, Unknown, PCP - General 07/09/19 documented as of this encounter Additional Source Comments The information contained in this document represents components of the legal health record. It is not the complete legal health record.[facility]
--- OUTSIDE RECORDS SUMMARY | 2025-10-25 00:19 | XMS_ITS | Encounter Summary ---
Author Organization [facility] Address [address] [facility] [place] [address] Phone Care Team Providers Care Editor Magazine Name Role Phone Unknown, Unknown Primary Care Provider Guy velasquez Encounter Details Date Type Department Care Team (Latest Contact Info) Description 09/07/2019 Transcribe Orders Virtual Department [address] [place] [address] Kim Owen PA [address] [place] [address] Abdominal pain, epigastric (Primary Dx) Social History [...] Primary documented in this encounter Care Teams Editor Magazine Relationship Specialty Start Date End Date Unknown, Unknown, PCP - General 07/09/19 documented as of this encounter Additional Source Comments The information contained in this document represents components of the legal health record. It is not the complete legal health record.[facility]
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
--- OUTSIDE RECORDS SUMMARY | 2025-10-25 00:19 | XMS_ITS | Clinical Summary ---
Author Organization [facility] Address [address] [facility] [address] [place] [address] Phone Care Team Providers Care Drying Tumbler Operator Name Role Phone Unknown, Unknown Primary [...] topic Medical Devices Not on file Insurance [facility]CO [facility] ACO [facility] ACO [facility] ACO Care Teams Drying Tumbler Operator Relationship Specialty Start Date End Date Unknown, Unknown, PCP - General 07/09/19 Additional Source Comments The information contained in this document represents components of the legal health record. It is not the complete legal health record.[facility]
--- OUTSIDE RECORDS SUMMARY | 2025-10-25 00:19 | XMS_ITS | Encounter Summary ---
Author Organization [facility] Address [address] [facility] [address] [place] [address] Phone Care Team Providers Care Sanding Line Operator Name Role Phone Unknown, Unknown Primary Care Provider Guy velasquez Reason for Referral * MRI/CAT Scan - Closed Specialty Diagnoses / Procedures Referred By Amber willams Referred To Contact Radiology Diagnoses Multiple nodules of lung Other nonspecific abnormal finding of lung field Procedures CT Chest Maite Rodriguez PA-C Phone: tel: fax: mailto: Referral ID Status Reason Start Date Expiration Date Visits Re quested Visits Authorized [id number] Closed 07/10/2019 09/08/2019 1 1 Encounter Details Date Type Department Care Team (Latest Contact Info) Description 07/10/2019 Transcribe Orders Virtual Department [address] [place] [address] Maite Rodriguez PA-C [address] [place] [address] [email or web address] Multiple nodules of lung (Primary [...] field documented in this encounter Care Teams Sanding Line Operator Relationship Specialty Start Date End Date Unknown, Unknown, PCP - General 07/09/19 documented as of this encounter Additional Source Comments The information contained in this document represents components of the legal health record. It is not the complete legal health record.[facility]
== END 2025-10-24 16:08 | disposition home or self-care (01) ==
LOC: HO.HMCFMS 15:39
PROVIDERS: Visit Provider Student in an Organized Health Care Education/Training Program
DX: R10.13 Epigastric pain (principal); E80.6 Other disorders of bilirubin metabolism; E51.9 Thiamine deficiency, unspecified

== ENCOUNTER → 2025-10-24 15:38 | Outpatient (BNVA) | payer OTHER, SELFPAY | PROVIDERS: Visit Provider Student in an Organized Health Care Education/Training Program | DX: R10.13 Epigastric pain (principal); E80.6 Other disorders of bilirubin metabolism; E51.9 Thiamine deficiency, unspecified; Z13.31 Encounter for screening for depression | CPT/HCPCS: 96127 ==